=== PATIENT | female | born 1995 | race Caucasian/White ===

== ENCOUNTER 2017-09-13 23:18 | Emergency (ER) | payer SELFPAY ==
[~2017-09-13] VITALS: Ht 162.6 cm; Wt 68.0 kg
[2017-09-13 23:22] VITALS: BP 120/82
[2017-09-13] MEDS ORDERED: predniSONE 20 MG TABLET ONE (23:46)
[2017-09-13] MEDS ORDERED: diphenhydrAMINE HCL 25 MG CAPSULE ONE (23:46)
[2017-09-13] MEDS ORDERED: FAMOTIDINE (20 MG) 20 MG TABLET ONE (23:46)
[2017-09-14] MEDS ORDERED: predniSONE 20 MG TABLET PO ONE
[2017-09-14] MEDS ORDERED: diphenhydrAMINE HCL 25 MG CAPSULE PO ONE
[2017-09-14] MEDS ORDERED: FAMOTIDINE (20 MG) 20 MG TABLET PO ONE
== END 2017-09-14 00:48 | disposition home or self-care (01) ==
LOC: ER 23:22
DX: L50.0 Allergic urticaria (principal)
CPT/HCPCS: A4606; Q0163; Z7610

== ENCOUNTER 2017-09-17 17:14 | Emergency (ER) | payer SELFPAY ==
[~2017-09-17] VITALS: Ht 162.6 cm; Wt 63.5 kg
[2017-09-17 17:39] VITALS: BP 122/70
[2017-09-17] MEDS ORDERED: diphenhydrAMINE HCL 25 MG CAPSULE PO ONE (18:30)
[2017-09-17] MEDS ORDERED: FAMOTIDINE (20 MG) 20 MG TABLET PO ONE (18:30)
== END 2017-09-17 18:30 | disposition home or self-care (01) ==
LOC: ER 17:15
DX: R21 Rash and other nonspecific skin eruption (principal)
CPT/HCPCS: A4606; Z7610

== ENCOUNTER 2019-02-09 01:27 | Emergency (ER) | payer OTHER ==
[~2019-02-09] VITALS: Ht 160 cm; Wt 72.6 kg
[2019-02-09 01:44] VITALS: BP 131/74
[2019-02-09] MEDS ORDERED: CEPHALEXIN MONOHYDRATE 500 MG CAPSULE PO ONE ×2 (02:16→02:30)
[2019-02-09] MEDS ORDERED: KETOROLAC TROMETHAMINE INJ 60 MG/2 ML VIAL IM ONE ×2 (02:16→02:30)
== END 2019-02-09 02:32 | disposition home or self-care (01) ==
LOC: ER 01:29
DX: N76.2 Acute vulvitis (principal)
CPT/HCPCS: 96372; 99284; J1885; A6403; A6407

== ENCOUNTER 2022-05-25 18:43 | Emergency (ER) | payer OTHER ==
--- NOTE | 2022-05-25 20:00 | NUR ---
CALLED TO [facility] NO ANSWER
--- NOTE | 2022-05-25 20:30 | NUR ---
PATIENT NOT IN WAITING ROOM
== END 2022-05-25 20:47 | disposition left against medical advice (07) ==
LOC: ER 18:48
DX: Z53.21 Procedure and treatment not carried out due to patient leaving prior to being seen by health care provider (principal)

== ENCOUNTER 2023-06-28 00:11 | Emergency (ER) | payer OTHER ==
[~2023-06-28] VITALS: Ht 162.6 cm; Wt 72.6 kg
[2023-06-28 00:47] VITALS: TEMP 98
[2023-06-28] MEDS ORDERED: ONDANSETRON HCL/PF 4 MG/2 ML VIAL ONE (01:06)
[2023-06-28] MEDS ORDERED: MORPHINE SULFATE INJ 4 MG/ML DISP.SYRIN ONE (01:07)
[2023-06-28] MEDS: IV NS 0.9% 1,000 ML BAG IV ONE (01:16)
[2023-06-28] MEDS: MORPHINE SULFATE INJ 2 MG/ML DISP.SYRIN IV ONE (01:17)
[2023-06-28] MEDS: ONDANSETRON HCL/PF 4 MG/2 ML VIAL IVP ONE (01:17)
[2023-06-28 01:19] LABS: BASOPHILS % (AUTO) 0.1 % (0.0-2.0); EOSINOPHILS % (AUTO) 0.5 % (0.0-6.0); HEMATOCRIT 38 % (33-45); HEMOGLOBIN 12.9 g/dL (11.5-14.8); LYMPHOCYTES % (AUTO) 27.2 % (20.0-44.0); MEAN CORPUSCULAR HEMOGLOBIN 28 PG (26.0-33.0); MEAN CORPUSCULAR HGB CONC 34 g/dl (31.0-36.0); MEAN CORPUSCULAR VOLUME 83 fL (82-100); MONOCYTES # (AUTO) 0.5 K/uL (0.1-1.30); MONOCYTES % (AUTO) 6.8 % (2.0-12.0); NEUTROPHILS # (AUTO) 4.9 K/uL (1.8-8.9); NEUTROPHILS % (AUTO) 65.4 % (43.0-81.0); PLATELET COUNT (AUTO) 281 K/uL (150-450); RED BLOOD CELL COUNT(AUTO) 4.61 MIL/uL (4.0-5.2); RED CELL DISTRIBUTION WIDTH 14.4 % (11.5-15.0); WHITE BLOOD COUNT (AUTO) 7.5 K/uL (4.3-11.0)
[2023-06-28 01:30] LABS: PARTIAL THROMBOPLASTIN TIME 29.1 SEC (24.3-34.3); PROTHROMBIN TIME 10.6 SECS (9.2-11.1)
[2023-06-28 01:40] LABS: CALCIUM, SERUM 8.9 mg/dL (8.5-10.1); CARBON DIOXIDE 28 mmol/L (21-32); CHLORIDE 105 mmol/L (98-107); CREATININE 0.6 mg/dL (0.6-1.3); GLUCOSE 94 mg/dL (74-106); POTASSIUM 3.7 mmol/L (3.5-5.1); SODIUM SERUM 139 mmol/L (136-145); UREA NITROGEN, BLOOD 15 mg/dL (7-18)
[2023-06-28 01:46] LABS: ALANINE AMINOTRANSFERASE 22 U/L (12-78); ALBUMIN 3.5 g/dL (3.4-5.0); ALKALINE PHOSPHATASE 44 U/L (46-116); ASPARTATE AMINOTRANSFERASE 17 U/L (15-37); BILIRUBIN,DIRECT 0.1 mg/dL (0.0-0.2); BILIRUBIN,TOTAL 0.2 mg/dL (0.2-1.0); LIPASE 27 U/L (16-77); TOTAL PROTEIN, SERUM 7.1 g/dL (6.4-8.2)
[2023-06-28 01:50] LABS: APPEARANCE,URINE CLEAR (CLEAR); BILIRUBIN,URINE NEGATIVE (NEGATIVE); BLOOD, URINE 2+ Ery/uL (NEGATIVE); COLOR,URINE YELLOW (YELLOW); KETONES,URINE NEGATIVE (NEGATIVE); LEUKOCYTE ESTERASE ,URINE NEGATIVE (NEGATIVE); NITRITE, URINE NEGATIVE (NEGATIVE); PROTEIN,URINE NEGATIVE (NEGATIVE); UGLUCOSE NEGATIVE (NEGATIVE); UROBILINOGEN,URINE 0.2 EU/dL (0.2)
[2023-06-28 01:51] LABS: ADD URINE CULTURE NO; BACTERIA,URINE Rare /HPF (None Seen); SQUAMOUS EPITHELIAL CELL,UR Few /HPF (None Seen); WBC,URINE 0-2 /HPF (0-3)
[2023-06-28 06:13] VITALS: BP 105/56; O2SAT 100
== END 2023-06-28 06:14 | disposition home or self-care (01) ==
LOC: ER 00:13
DX: R10.13 Epigastric pain (principal); R11.10 Vomiting, unspecified
CPT/HCPCS: 99285; 74176; 96374; 71045; 96361; 96375; 93005; 85025; 80048; 83690; 80076; 81001; 36415; 84484 ×2; 85730; J2270; J2405; J7030

== ENCOUNTER 2023-12-29 22:48 | Emergency (ER) | payer OTHER ==
[~2023-12-29] VITALS: Ht 162.6 cm; Wt 59.9 kg
--- NOTE | 2023-12-29 23:37 | NUR ---
BIBS C/O ABD PAIN, N/V, CONSTIPATION X 4 DAYS
--- NOTE | 2023-12-30 00:07 | NUR ---
BLOOD SENT TO LAB
[2023-12-30 00:14] LABS: BASOPHILS % (AUTO) 0.3 % (0.0-2.0); EOSINOPHILS # (AUTO) 0.1 K/uL (0.0-0.7); EOSINOPHILS % (AUTO) 1.3 % (0.0-6.0); HEMATOCRIT 40 % (33-45); HEMOGLOBIN 13.2 g/dL (11.5-14.8); LYMPHOCYTES # (AUTO) 2.2 K/uL (0.8-4.8); LYMPHOCYTES % (AUTO) 28.2 % (20.0-44.0); MEAN CORPUSCULAR HEMOGLOBIN 28 PG (26.0-33.0); MEAN CORPUSCULAR HGB CONC 33 g/dl (31.0-36.0); MEAN CORPUSCULAR VOLUME 84 fL (82-100); MONOCYTES # (AUTO) 0.8 K/uL (0.1-1.30); MONOCYTES % (AUTO) 10.2 % (2.0-12.0); NEUTROPHILS # (AUTO) 4.7 K/uL (1.8-8.9); PLATELET COUNT (AUTO) 298 K/uL (150-450); RED BLOOD CELL COUNT(AUTO) 4.78 MIL/uL (4.0-5.2); RED CELL DISTRIBUTION WIDTH 13.8 % (11.5-15.0); WHITE BLOOD COUNT (AUTO) 7.7 K/uL (4.3-11.0)
[2023-12-30] MEDS ORDERED: CT SWABBABLE VALVE TRANS SET 1 EA INFUS.SET MC ONE (00:26)
[2023-12-30] MEDS ORDERED: IV NS 0.9% 250 ML IV ONE (00:27)
[2023-12-30] MEDS ORDERED: IOHEXOL 50 ML IV ONE (00:27)
[2023-12-30] MEDS ORDERED: DIATR MEGLU/DIATRIZOATE SODIUM 120 ML BOTTLE (GASTROGRAPHIN) ONE (00:27)
[2023-12-30] MEDS ORDERED: IOHEXOL-300 100 ML VIAL IV ONE (00:28)
[2023-12-30] MEDS ORDERED: ONDANSETRON HCL/PF 4 MG/2 ML VIAL ONE (00:34)
[2023-12-30] MEDS ORDERED: MORPHINE SULFATE INJ 4 MG/ML DISP.SYRIN ONE (00:34)
[2023-12-30 00:35] LABS: APPEARANCE,URINE SLIGHTLY CLOUDY (CLEAR); BILIRUBIN,URINE 1+ (NEGATIVE); BLOOD, URINE 2+ Ery/uL (NEGATIVE); COLOR,URINE DARK YELLOW (YELLOW); KETONES,URINE TRACE mg/dL (NEGATIVE); LEUKOCYTE ESTERASE ,URINE 1+ (NEGATIVE); NITRITE, URINE NEGATIVE (NEGATIVE); PH,URINE 6.5 (5.0-8.0); PROTEIN,URINE TRACE mg/dl (NEGATIVE); UGLUCOSE NEGATIVE (NEGATIVE)
[2023-12-30] MEDS ORDERED: FAMOTIDINE/PF INJ 20 MG/2 ML VIAL IV ONE (00:35)
[2023-12-30] MEDS: IV NS 0.9% 1,000 ML BAG IV ONE (00:35)
[2023-12-30 00:36] LABS: ADD URINE CULTURE YES; BACTERIA,URINE Few /HPF (None Seen); PREGNANCY TEST URINE QUAL NEGATIVE (NEGATIVE); SQUAMOUS EPITHELIAL CELL,UR Rare /HPF (None Seen)
[2023-12-30] MEDS: ONDANSETRON HCL/PF 4 MG/2 ML VIAL IV ONE (00:36)
[2023-12-30] MEDS: MORPHINE SULFATE INJ 2 MG/ML DISP.SYRIN IV ONE (00:36)
[2023-12-30] MEDS: FAMOTIDINE/PF INJ 20 MG/2 ML VIAL IV ONE (00:36)
[2023-12-30 00:38] LABS: CALCIUM, SERUM 8.2 mg/dL (8.5-10.1); CREATININE 0.6 mg/dL (0.6-1.3)
--- NOTE | 2023-12-30 00:40 | NUR ---
POTASSIUM 2.7
[2023-12-30 00:45] LABS: ALBUMIN 2.9 g/dL (3.4-5.0); BILIRUBIN,DIRECT 0.1 mg/dL (0.0-0.2); BILIRUBIN,TOTAL 0.4 mg/dL (0.2-1.0); TOTAL PROTEIN, SERUM 6.1 g/dL (6.4-8.2)
[2023-12-30 00:48] LABS: POTASSIUM 2.7 mmol/L (3.5-5.1)
[2023-12-30] MEDS ORDERED: POTASSIUM CHLORIDE 20 MEQ TAB.PRT.SR PO ONE (00:56)
[2023-12-30] MEDS ORDERED: POTASSIUM CL. PREMIX PERIPHER. 50 ML ONE ×2 (00:56→01:52)
[2023-12-30] MEDS: POTASSIUM CHLORIDE 20 MEQ TAB.PRT.SR PO ONE (00:57)
[2023-12-30] MEDS: POTASSIUM CL. PREMIX PERIPHER. 50 ML IV ONE (00:57)
--- NOTE | 2023-12-30 00:59 | NUR ---
POTASSIUM 1OMEQ GIVEN @[facility] 20G 50ML/HR 1 OUT OF 2
--- NOTE | 2023-12-30 01:59 | NUR ---
POTASSIUM 1OMEQ GIVEN @[facility] 20G 50ML/HR 2 OUT OF 2
--- NOTE | 2023-12-30 03:10 | NUR ---
PT TAKEN TO CT
--- NOTE | 2023-12-30 03:29 | NUR ---
PT BACK TO [facility]
[2023-12-30] MEDS ORDERED: KETOROLAC TROMETHAMINE 15 MG/ML VIAL ONE (04:25)
[2023-12-30] MEDS ORDERED: MORPHINE SULFATE INJ 2 MG/ML DISP.SYRIN IV ONE (04:30)
--- NOTE | 2023-12-30 04:30 | NUR ---
Patient is resting comfortably in bed with eyes closed. Easily aroused.pt v/s with normal limits,hooked up with monitor,both siderails up,will continue tomonitor.
[2023-12-30] MEDS: KETOROLAC TROMETHAMINE 15 MG/ML VIAL IV ONE (04:41)
--- NOTE | 2023-12-30 04:49 | NUR ---
chaperoned during pelvic exam
[2023-12-30] MEDS ORDERED: CEFTRIAXONE 0.5 G in IV D5W 50 ML IV ONE (06:30)
[2023-12-30] MEDS ORDERED: DOXY-326 PO (06:42)
[2023-12-30] MEDS: D5W IV ONE (06:56)
[2023-12-30] MEDS: CEFTRIAXONE IV ONE (06:56)
--- NOTE | 2023-12-30 07:35 | NUR ---
Sleeping soundly Respirations even and unlabored
[2023-12-30 09:48] VITALS: BP 90/60; TEMP 98.4; O2SAT 98
--- NOTE | 2023-12-30 09:49 | NUR ---
Patient discharged to home in stable condition. Written and verbal after care instructions given. Patient verbalizes understanding of instruction.IV removed. Catheter intact and site benign. Pressure and 4x4 applied to site. No bleeding noted.
[2024-01-02 19:08] LABS: CHLAMYDIA TRACHOMATIS NAA Negative (Negative); NEISSERIA GONORRHOEAE NAA Negative (Negative)
== END 2023-12-30 09:49 | disposition home or self-care (01) ==
LOC: ER 22:50
DX: R10.10 Upper abdominal pain, unspecified (principal); R11.2 Nausea with vomiting, unspecified; N89.8 Other specified noninflammatory disorders of vagina; K59.00 Constipation, unspecified
CPT/HCPCS: 99285; 36415; 87491; 87591; 74177; 96365; 96375; 96367; 96366; 85025; 80048; 87086; 83690; 80076; 84703; 81001; 87210; J2270; J3490; J0696 ×2; J2405; J7060 ×2; J7030; J7050; J3480 ×2; A4223; Q9963; J1885; Q9967 ×2

== ENCOUNTER 2024-03-26 23:46 | Emergency (ER) | payer OTHER ==
[~2024-03-26 23:46] MED LIST: DOXY-326 PO
== END 2024-03-27 00:15 | disposition left against medical advice (07) ==
LOC: ER 23:50
DX: R11.10 Vomiting, unspecified (principal); R10.9 Unspecified abdominal pain; Z53.21 Procedure and treatment not carried out due to patient leaving prior to being seen by health care provider